=== PATIENT | male | born 1950 | race Caucasian/White ===

== ENCOUNTER → 2023-12-27 14:10 | Outpatient (REF) | payer MEDICARE, OTHER, SELFPAY | LOC: HWRAD 14:10 | PROVIDERS: ATTENDING PHYSICIAN Internal Medicine | DX: S99.911A Unspecified injury of right ankle, initial encounter (principal) | CPT/HCPCS: 73610 ==

== ENCOUNTER 2024-07-25 21:27 | Emergency (ER) | payer MEDICARE, OTHER, SELFPAY ==
[2024-07-25 21:37] VITALS: BP 143/65
[2024-07-25 21:43] VITALS: BP 143/65
[2024-07-25 22:00] VITALS: BP 140/73
--- NOTE | 2024-07-25 22:19 | ED.GENMED ---
History of Present Illness
General
Chief Complaint: Cardiac Symptoms
Source: patient and family
Time Seen by Provider: 07/25/24 21:49
History of Present Illness
History of Present Illness:
This patient is a 74-year-old male presents emergency with complaints of feeling off balance while walking that he noticed as soon as he got out of the bed today. He describes it as 'my footing is not correct' also described as feeling like he
'goes sideways' when he got out of bed and tried to walk. He describes feeling like he is falling on an angle. It took him 4 separate attempts to get out of bed to walk to the bathroom this morning. Throughout the day, he has had 3 episodes where
he needed to 'catch himself' to protect himself from falling because he would feel like he was losing his footing. He denies weakness or numbness in his extremities and he specifically states 'I am not dizzy in my head'. He denies a sense of
spinning, dizziness, headache. He describes suffering from 'crystals in my head' and going to the balance center in the past and denying similarities to today's symptoms. He denies numbness, tingling, focal weakness, nausea, vomiting, fever,
chills, chest pain, shortness of breath. He also notes that he has very mild almost fully resolved discomfort in the left neck and arm that started when he adjusted his chair today. He strongly believes it is related to his chair and his position,
as well as his longstanding rotator cuff issue. He denies exacerbating relieving factors this pain, radiation, back pain, diaphoresis, or other complaints.
Past History
Past History
ED Past Medical History: Hypercholesterolemia, NIDDM ('Borderline'.) and Other (IBS, A-fib, bipolar)
ED Past Surgical History: Cholecystectomy and Other (eye)
Social History
Tobacco: Former smoker
Alcohol: Occasional
Drug: None
Personal:
Living: with family
Employment: Retired
Phy Exam
Physical Exam
Physical Exam:
GENERAL: Alert , in no apparent distress
EYE: Left pupil round but larger than right which is chronic as per patient, no nystagmus noted, EOMI, no photophobia
NECK: Supple, no significant adenopathy, no bruit.
ENT: o/p clr, mmm.
CARDIAC: Regular rate and rhythm .
LUNGS: Clear breath sounds bilaterally, no acute respiratory distress, no wheezes/rales/rhonchi
ABDOMEN: Soft, without focal tenderness, no r/g, no cvat
NEUROLOGICAL: Alert and oriented, no focal neuro deficits, motor 5 out of 5, sensory intact to light touch, cranial nerves II through XII intact, [id number] normal
SKIN: Warm and dry, skin intact.
MUSCULOSKELETAL: No edema, well perfused.
PSYCH: Normal and appropriate interaction.
Course
Orders/Labs/Results
Orders:
Orders
07/25/24 21:29
ECG [Electrocardiogram (*1)] Urgent
Reason for Study: Chest Pain
EKG- Treatment ONCE
07/25/24 22:19
CT Head W/o Iv Contrast Urgent
Comment:
Reason For Exam: on warfarin, feels off balance
Cardiac Monitoring- Treatment ONCE
07/25/24 22:23
Complete Blood Count/No Diff Urgent
Comprehensive Metabolic Panel Urgent
[place] Urgent
Prothrombin Time Urgent
Troponin I Urgent
07/26/24 00:15
CT Head & Neck Angio W/wo IV Urgent
Comment:
Reason For Exam: neck pain, imbalance
Abnormal Lab Results
07/25/24
22:23
RBC 4.36 L 10^6/uL
(4.70-6.10)
Hct 38.8 L %
(39.0-52.0)
PT 21.0 H Sec
(11.4-14.6)
Calcium 10.3 H mg/dl
(8.4-10.2)
[place] 0.4 L mmol/L
(0.6-1.2)
07/25/24 22:23
07/25/24 22:23
Vital Signs
Initial and Last Documented VS:
Initial Vital Signs
Temp Pulse Resp BP Pulse Ox
97.7 F 54 16 143/65 98
07/25/24 21:37 07/25/24 21:37 07/25/24 21:37 07/25/24 21:37 07/25/24 21:37
Last Documented Vital Signs
Temp Pulse Resp BP Pulse Ox
97.7 F 59 18 125/69 97
07/25/24 21:37 07/26/24 02:25 07/26/24 02:25 07/26/24 02:25 07/26/24 02:25
*Critical Care Note
Total Time (30-74mins, 75-104mins- exclusive of procedures): Not Applicable
Update Note
Update Note:
Patient presents to the Emergency Department with ____feeling like losing footing while walking
Number and Complexity of Problems Addressed at the Encounter
� Chronic conditions affecting care:
� Acute Exacerbation and/or Progression of Chronic Illness:
� Differential Diagnosis includes: But not limited to peripheral vertigo, central vertigo, ACS, intracranial bleed, CVA, etc.
Amount and/or Complexity of Data to be Reviewed and Analyzed
� I performed an independent evaluation of and my interpretation is:
EKG: Read by me, sinus bradycardia, normal axis, no acute ischemia
CT: Noncontrast head CT read by radiology NAD CTA read by vision bilateral vertebral arteries are widely patent left vertebral artery is dominant bilateral common carotid and internal carotid arteries are widely patent
approximately 4.6 x 2.3 x 4 cm nodule in the right lobe of the thyroid gland [place] is patent.
Xrays:
Laboratory Studies: Generally unremarkable patient states his lithium level is always considered subtherapeutic but still helpful to him. He is aware his INR is 1.8 and he will need to follow-up with his doctor tomorrow
regarding Coumadin dosing.
Other:
� Review of other/old records reveals: Patient admitted in 2019 with complaints of chest pain, workup unremarkable, echo showed EF of 60 to 65% with mild LVH, nuclear stress normal
� Clinical information was obtained by an independent historian: Daughter and who are at bedside
� Prescriptions/Medications Considered but not given:
� Further testing considered but not performed:
Risk of Complications and/or Morbidity or Mortality of Patient Management
� Social determinants of health affecting care:
� Discussion with other providers (PCP, Hospitalists, Consultants, etc):
� Escalation of care including admission/observation vs risk of discharge considered: Interestingly although patient gave a history that he did not feel like it was related to crystals, when I sat him up to listen to his lungs he
stated that he now is developing associated vertigo. Since that time, patient has had several episodes of short-lived positional vertigo. He does not have resting nystagmus or constant vertigo. He ambulated here in the emergency department, had a
brief episode of vertigo with change in position which self resolved. No focal neurological findings. History and physical do not suggest central etiology. Patient will be discharged with close follow-up.
ED Attending Note
-
Portions of this chart may have been created with voice recognition software.� Occasional wrong word or��sound alike� substitutions may have occurred due to the inherent limitations of voice recognition software.
Discharge Plan
Departure
Patient Disposition: Home (Routine Discharge)
Date of Disposition: 07/26/24
Time of Disposition: 02:08
Patient with high blood pressure during this ER visit?: Yes
Condition: Good
Discharge Problem:
Dizziness
Instructions: Vertigo (a type of dizziness), BLOOD PRESSURE
Prescriptions:
New
meclizine [Antivert] 25 mg tablet,chewable
25 mg PO Q8HPRN PRN (Reason: nausea or vertigo) Qty: 7 0RF
No Action
amitriptyline-chlordiazepoxide 1 EACH tablet
1 tab PO QPM
omega 4-iwf-jod-fish oil [Fish Oil] 1 EACH capsule
2 ea PO BID
latanoprost 1 DROP drops
1 drp BOTH EYES HS
primidone 50 MG tablet
50 mg PO DAILY
fexofenadine [Karie] 180 MG tablet
180 mg PO DAILYPRN PRN (Reason: allergy)
aspirin 81 MG tablet,delayed release (DR/EC)
81 mg PO DAILY
Patient Comments:
Pt took 4 of these this am
lansoprazole [Prevacid] 30 MG capsule,delayed release(DR/EC)
30 mg PO BID
Patient Comments:
Pt is taking this medication once a day at night.
vitamin B complex 1 TAB tablet
1 tab PO DAILY
primidone [Mysoline] 50 MG tablet
100 mg PO HS
atorvastatin 10 MG tablet
10 mg PO QPM
lithium carbonate 600 MG capsule
600 mg PO HS
albuterol sulfate 18 GM HFA aerosol inhaler
1 - 2 puff IH Q4HPRN PRN (Reason: SOB)
ipratropium bromide 1 SPRAY spray,non-aerosol
2 spray intranasal DAILYPRN PRN (Reason: nasal congestion,allergies)
brimonidine [Alphagan P] 1 DROP drops
1 drp LEFT EYE BID
[place] Capsules
1 cap PO BID
Cranberry
1 cap PO DAILY
Magnesium
450 mg PO HS
warfarin [Jantoven] 5 MG tablet
5 mg PO DAILY Qty: 30 0RF
Referrals:
Italo Betts MD [Family Provider] - Follow up in 2-3 days
Activity Restrictions/Additional Instructions:
PLEASE FOLLOW-UP WITH YOUR DOCTOR DIRECTED. IF YOU DEVELOP PERSISTENT DIZZINESS, ANY NUMBNESS, WEAKNESS, CHANGE IN VISION, CHANGE IN SPEECH, SEVERE HEADACHE OR NECK PAIN, OR OTHER WORRISOME SIGNS, PLEASE RETURN TO THE ER IMMEDIATELY. PLEASE
CALL YOUR DOCTOR TOMORROW REGARDING YOUR INR OF 1.8 YOU WILL NEED MODIFICATIONS TO YOUR WARFARIN DOSING
Interventions
Interventions:
*Risk Screen - Suicide Last Done: 07/26/24 00:58
*General Assessment Last Done: 07/25/24 21:37
*Neglect/Abuse Screening Last Done: 07/25/24 23:43
ED- Fall Risk Assessment Last Done: 07/26/24 00:58
*ED COVID-19 Vaccine History Last Done: 07/25/24 21:37
*Nursing Disposition Last Done: 07/26/24 02:25
ED- Pulmonary Assessment Last Done: 07/25/24 22:07
ED- Cardiac Assessment Last Done: 07/25/24 22:07
Discharge Date and Time
Discharge Date/Time: 07/26/24 02:26
Print Language: [place]
[2024-07-25 22:40] LABS: Hematocrit 38.8 % (39.0-52.0); Hemoglobin 13.1 g/dL (13.0-18.0); Mean Corp Hgb Conc. 33.8 g/dL (33.0-37.0); Mean Platelet Volume 9.8 fL (7.4-10.4); Platelet Count 221 10^3/uL (130-400); Red Blood Cell Count 4.36 10^6/uL (4.70-6.10)
[2024-07-25 22:50] LABS: INR 1.83
[2024-07-25 22:59] LABS: ALT (SGPT) 35 U/L (0-50); AST (SGOT) 29 U/L (17-59); Alkaline Phosphatase 68 U/L (38-126); Blood Urea Nitrogen 15 mg/dl (9-20); Calcium 10.3 mg/dl (8.4-10.2); Carbon Dioxide 28 mmol/L (22-30); Chloride 106 mmol/L (98-107); Glucose 80 mg/dl (70-99); Lithium 0.4 mmol/L (0.6-1.2); Potassium 4.9 mmol/L (3.5-5.1); Sodium 139 mmol/L (135-145); Total Bilirubin 0.5 mg/dl (0.2-1.3); Total Protein 6.3 g/dl (6.3-8.2); eGFR > 60.00
[2024-07-25 23:05] LABS: Troponin I < 0.012 ng/ml
[2024-07-25 23:44] VITALS: BP 119/64
[2024-07-26] VITALS: BP 149/73
[2024-07-26 02:15] VITALS: BP 125/69
[2024-07-26 02:25] VITALS: BP 125/69
== END 2024-07-26 02:26 | disposition home or self-care (01) ==
LOC: EMR 21:27
PROVIDERS: EMERGENCY PHYSICIAN Emergency Medicine; FAMILY PHYSICIAN Internal Medicine
DX: R42 Dizziness and giddiness (principal); M54.2 Cervicalgia; M79.602 Pain in left arm; R26.81 Unsteadiness on feet; R03.0 Elevated blood-pressure reading, without diagnosis of hypertension; E78.00 Pure hypercholesterolemia, unspecified; K58.9 Irritable bowel syndrome, unspecified; I48.91 Unspecified atrial fibrillation; F31.9 Bipolar disorder, unspecified; R73.03 Prediabetes; Z79.82 Long term (current) use of aspirin; Z79.01 Long term (current) use of anticoagulants; Z90.49 Acquired absence of other specified parts of digestive tract; Z87.891 Personal history of nicotine dependence; Z88.8 Allergy status to other drugs, medicaments and biological substances; Z88.5 Allergy status to narcotic agent
CPT/HCPCS: 99285; 70450; 70496; 70498; 80053; 80178; 84484; 85027; 85610; 93005; Q9967

== ENCOUNTER 2024-08-14 16:39 | Observation (INO) | payer MEDICARE, OTHER, SELFPAY ==
[2024-08-14] VITALS (13 sets, daily range): BP systolic 109–164; BP diastolic 56–85; PULSE 49–66; BMI 30.5; BMI 29.4
--- NOTE | 2024-08-14 14:17 | ED.GENMED ---
History of Present Illness
General
Chief Complaint: Dizziness
Time Seen by Provider: 08/14/24 13:37
History of Present Illness
History of Present Illness:
74-year-old male with history of bipolar disorder, A-fib on Coumadin presenting to the emergency department for feeling off balance. Patient reports issues with vertigo in the past and had an acute issue on July 25, at which time he was seen in
the hospital. Patient had CT brain and CT angio of his head and neck, without acute pathology. 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 Patient has been getting vestibular therapy a few times a week, has been
doing well with therapy. Notes that particularly yesterday he had a good day with therapy. Today he went to vestibular therapy, and they were unable to do most of the therapy because he was very off balance. The therapist reported that she did
not attach any crystals to suspect vertiginous component. Daughter tried to walk him to his car, and he had several episodes where he lost his footing and seemed to be out of it, was not responding verbally. This incident occurred about an hour
prior to arrival. He denied any dizziness with this off-balance sensation. Patient is currently asymptomatic. Denies weakness or numbness to extremities, denies visual symptoms, denies chest pain, difficulty breathing, fever or recent illness.
Denies additional acute medical complaints
Past History
Past History
ED Past Medical History: Hypercholesterolemia, NIDDM ('Borderline'.) and Other (IBS, A-fib, bipolar)
ED Past Surgical History: Cholecystectomy and Other (eye)
Social History
Tobacco: Former smoker
Alcohol: Occasional
Drug: None
Personal:
Living: with family
Employment: Retired
Phy Exam
Physical Exam
Physical Exam:
General: Well-appearing, no clinical signs of dehydration, nontoxic and in no acute distress
HEENT: protecting airway
Neck: appears supple
CV: Normal heart rate, regular rhythm, no evidence of cyanosis
Resp: No accessory muscle use, no increased work of breathing, lungs clear to auscultation bilaterally
Abd: Soft and non-distended, no tenderness to palpation, normal bowel sounds
Extremities: No deformities, no swelling, no erythema, pulses and sensation intact
Neuro: alert, intact strength and motor sensation to bilateral upper and lower extremities. Patient ambulated, slightly unsteady
: deferred
Rectal: deferred
Psych: Normal affect
Skin: Intact
Scores
NIH Stroke Score
Level of Consciousness: 0 - Alert
LOC Questions: 0-Answers both correctly
LOC Commands: 0-Performs both correctly
Best Horizontal Gaze: 0-Normal
Visual Tom: 0=Normal, no visual loss
Facial Palsy: 0=Normal, symmetrical
Motor - Right Arm: 0=No drift 10 seconds
Motor - Left Arm: 0=No drift 10 seconds
Motor - Right Le-No drift 5 seconds
Motor - Left Le-No drift 5 seconds
Limb Ataxia: 0-Absent
Sensation: 0-Normal
Best Language: 0-No aphasia
Dysarthria: 0-Normal
Extinction and Inattention: 0-No abnormality
Total Score:: 0
Course
Orders/Labs/Results
Orders:
Orders
08/14/24 14:03
Electrocardiogram (*1) Stat
Reason for Study: Other
Other Reason for Exam: chest pain
EKG- Treatment ONCE
08/14/24 14:07
Complete Blood Count/With Diff Urgent
Erythrocyte Sed Rate Urgent
Comment: ADD ON
PTT Urgent
Prothrombin Time Urgent
Troponin I Urgent
08/14/24 14:08
CT Head W/o Iv Contrast Urgent
Comment:
Reason For Exam: off-balance
08/14/24 14:36
Comprehensive Metabolic Panel Urgent
Ferritin Urgent
Comment: ADD ON
Folate Urgent
Comment: ADD ON
[place] Urgent
Comment: ADD ON
TSH Reflex To Free T4 Urgent
Comment: ADD ON
Vitamin B12 Urgent
Comment: ADD ON
08/14/24 14:40
Add On- LAB Routine
Comments:: Please add to today's labs or draw as routine
Tests Added?: TSH reflex, Ferritin, Folate, Vit. B12, ESR, lithium level
08/14/24 14:43
Orthostatic Vital Signs As Directed
Orthostatic VS Frequency: BID
Comment: please wait 3 minutes after each position change before checking bp
08/14/24 15:24
MR Brain Without Contrast Routine
Comment:
Reason For Exam: dizziness; stroke
Recent pill cam endoscopy?: No
Abnormal Lab Results
08/14/24
14:07
RBC 4.45 L 10^6/uL
(4.70-6.10)
Absolute Monos (auto) 1.0 H 10^3/uL
(0.1-0.6)
Monocytes % 12.4 H %
(1.7-9.3)
Eosinophils % 8.7 H %
(0-6)
PT 19.3 H Sec
(11.4-14.6)
APTT 39.2 H Sec
(23.4-35.0)
08/14/24 14:07
08/14/24 14:36
Vital Signs
Initial and Last Documented VS:
Initial Vital Signs
Temp Pulse BP Pulse Ox
98.5 F 60 146/85 99
08/14/24 13:09 08/14/24 13:09 08/14/24 13:09 08/14/24 13:09
Last Documented Vital Signs
Temp Pulse Resp BP Pulse Ox
98.5 F 54 12 124/64 100
08/14/24 13:09 08/14/24 15:00 08/14/24 15:00 08/14/24 15:00 08/14/24 15:00
MDM/Problems Addressed
MDM/Problems Addressed:
74-year-old male with history of bipolar and A-fib on Eliquis presenting for being off balance. Vital signs on arrival are normal.
On exam, patient is resting comfortably, no acute distress or discomfort. Patient however was ambulated, did seem off balance. Denies associated dizziness. Patient has had vertigo in the past, has been suffering with vertigo in the past few with
vestibular therapy, however notes symptoms feel different than those events. At this time symptoms are less consistent with vertiginous etiology. Concern for central neurologic process. NIH at this time is 0, without indication for tPA in the
setting of potential central neurologic process. Will consult neurology and repeat CT imaging.
15:30 -CT without acute intracranial abnormality. Labs unremarkable. EKG does show bradycardia, however no acute ischemic abnormality or heart block. In discussion with neurology, recommending orthostatics and admission for MRI. Patient and
family agreeable to plan.
*EKG
Interpreted by ED Provider?: Yes
EKG Intrepretation Date: 08/14/24
EKG Intrepretation Time: 14:25
Interpretation: normal
Comparison EKG: no changes
Heart Rate: 51
Rate: bradycardiac
Rhythm: sinus
[place]: normal axis
Interval: normal interval
QRS Pattern: normal QRS
Ischemia: no ischemia
*Critical Care Note
Total Time (30-74mins, 75-104mins- exclusive of procedures): Not Applicable
ED Attending Note
-
Portions of this chart may have been created with voice recognition software.� Occasional wrong word or��sound alike� substitutions may have occurred due to the inherent limitations of voice recognition software.
Discharge Plan
Departure
Prescriptions:
No Action
amitriptyline-chlordiazepoxide 1 EACH tablet
1 tab PO QPM
omega 9-igs-tkz-fish oil [Fish Oil] 1 EACH capsule
2 ea PO BID
latanoprost 1 DROP drops
1 drp BOTH EYES HS
primidone 50 MG tablet
50 mg PO DAILY
fexofenadine [Karie] 180 MG tablet
180 mg PO DAILYPRN PRN (Reason: allergy)
aspirin 81 MG tablet,delayed release (DR/EC)
81 mg PO DAILY
Patient Comments:
Pt took 4 of these this am
lansoprazole [Prevacid] 30 MG capsule,delayed release(DR/EC)
30 mg PO BID
Patient Comments:
Pt is taking this medication once a day at night.
vitamin B complex 1 TAB tablet
1 tab PO DAILY
primidone [Mysoline] 50 MG tablet
100 mg PO HS
atorvastatin 10 MG tablet
10 mg PO QPM
lithium carbonate 600 MG capsule
600 mg PO HS
albuterol sulfate 18 GM HFA aerosol inhaler
1 - 2 puff IH Q4HPRN PRN (Reason: SOB)
ipratropium bromide 1 SPRAY spray,non-aerosol
2 spray intranasal DAILYPRN PRN (Reason: nasal congestion,allergies)
brimonidine [Alphagan P] 1 DROP drops
1 drp LEFT EYE BID
[place] Capsules
1 cap PO BID
Cranberry
1 cap PO DAILY
Magnesium
450 mg PO HS
warfarin [Jantoven] 5 MG tablet
5 mg PO DAILY Qty: 30 0RF
meclizine [Antivert] 25 mg tablet,chewable
25 mg PO Q8HPRN PRN (Reason: nausea or vertigo) Qty: 7 0RF
Referrals:
Italo Betts MD [Family Provider] -
Interventions
Interventions:
*Risk Screen - Suicide Last Done: 08/14/24 13:11
*General Assessment Last Done: 08/14/24 13:11
*Neglect/Abuse Screening Last Done: 08/14/24 13:13
ED- Fall Risk Assessment Last Done: 08/14/24 13:40
*ED COVID-19 Vaccine History Last Done: 08/14/24 13:11
ED- Neurological Assessment Last Done: 08/14/24 13:40
ED- Cardiac Assessment Last Done: 08/14/24 13:40
ED Swallowing Screen Last Done: 08/14/24 14:02
Discharge Date and Time
Print Language: YI
[2024-08-14 14:19] LABS: % Eosinophils 8.7 % (0-6); % Immature Granulocytes 0.3 % (0-0.5); % Lymphocytes 22.4 % (20.5-51.1); % Monocytes 12.4 % (1.7-9.3); % Neutrophils 55.2 % (42.2-75.2); Absolute Basophils 0.1 10^3/uL (0-0.2); Absolute Eosinophils 0.7 10^3/uL (0-0.7); Absolute Lymphocytes 1.8 10^3/uL (1.2-3.4); Absolute Neutrophils 4.4 10^3/uL (1.4-6.5); Hematocrit 41.4 % (39.0-52.0); Hemoglobin 13.7 g/dL (13.0-18.0); Mean Corp Hgb Conc. 33.1 g/dL (33.0-37.0); Mean Corpuscular Hgb 30.8 pg (27.0-31.0); Mean Platelet Volume 9.9 fL (7.4-10.4); Nucleated Red Blood Cells % 0 % (-); Platelet Count 216 10^3/uL (130-400); Red Blood Cell Count 4.45 10^6/uL (4.70-6.10); Red Cell Dist. Width 14.2 % (11.5-14.5); White Blood Cell Count 7.9 10^3/uL (4.8-10.8)
[2024-08-14 14:29] LABS: INR 1.57; PT 19.3 Sec (11.4-14.6)
[2024-08-14 14:30] LABS: APTT 39.2 Sec (23.4-35.0)
[2024-08-14 14:45] LABS: Troponin I < 0.012 ng/ml
--- NOTE | 2024-08-14 14:45 | CON.NEURO4 ---
Addendum entered and electronically signed by Tim Lombardo MD 08/14/24 16:24:
Studies reviewed.
I have personally examined the patient. I reviewed and agree with the POLYTECHNIC REGISTRAR's Note.
My addenda:
Awake, alert, interactive. No acute distress.
Speech intact.
Follows 2-step requests w/o difficulty. No tremor.
Extra-ocular movements grossly intact.
Facial movements full and symmetric. Hearing intact to normal conversational volume.
Normal UE movements bilaterally.
Neck: full ROM.
Chest: no dyspnea
Heart: no JVD
Ext: (-) Clubbing, (-) Cyanosis, (-) Edema
IMPRESSIONS/RECOMMENDATIONS:
Abrupt onset of worsening gait with scissor movements in a patient with known essential tremor secondary in part to the patient's use of lithium, and with known neuropathy
Differential diagnosis includes orthostatic hypotension, acute ischemic stroke, worsening vestibular function
Check MRI of brain
Check orthostatic blood pressures
Check levels of lithium and primidone
Follow bradycardia
D/W patient / family / nursing
All questions answered.
Will continue to follow patient.
Original Note:
Documented by User: Mary Duke NP 08/14/24 15:59
Consultation - Neurology 4
-
CONSULTING PHYSICIAN: Tim Lombardo MD
REFERRING PHYSICIAN: ER/Dr. Granados
DICTATED BY: TOÑA Montenegro
DATE/TIME OF REQUEST: 08/14/24
DATE/TIME OF CONSULTATION: 08/14/24
Reason for Consultation: Dizziness, gait abnormality
History of Present Illness:
This is a 74-year-old right-handed male who has presented to the hospital with report of gait abnormality. Patient is followed by Neurology Dr. Wiliam Dowling at [facility] for tremor, polyneuropathy, gait imbalance, and dysphagia. He was
recently evaluated in ER on 07/25/24 for gait dysfunction as well, falls and bumping into berumen. CTA head/neck was obtained and was negative for any acute findings. His symptoms were suspected to be due to his chronic BPPV and he was referred to
outpatient vestibular therapy. He and his family report that his vestibular therapist initially noted BPPV and his symptoms improved after a few sessions. Today around 1100 at physical therapy, patient was noted to be much more off-balance than
usual and they could not detect any peripheral vertigo symptoms. His daughter picked him up from therapy and upon walking to the car notes that he seemed to be 'out of it,' minimally verbally responsive, and his gait was a 'leg over leg' abnormal
walk. He has been noting posterior neck pain since 07/25/24 and feeling that something is 'off' in the back of his head. 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 He also notes being diagnosed with severe
peripheral neuropathy by EMG two years ago and he wears orthotics. It is not abnormal for him to be 'clumsy' when he first stands up. His heart rate is notably in the upper 40's, which they report 40's-50's is normal for him. He is taking Coumadin
for paroxysmal Afib, INR was subtherapeutic in July and again today. 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 He is taking primidone for this and has been on lithium/primidone for years.
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
Surgical History: Cholecystectomy, b/l cataract removal, cardiac cath, left eye 5 surgeries for retinal detachment repair.
Family History: Reviewed and noncontributory.
Social History: Former smoker. Occasional alcohol. Denies illicit drug use. 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
Allergies: Codeine, thiothixene.
Home Medications: See below.
Review of Symptoms:
Patient denies any fever, headache, chest pain, shortness of breath, GI or symptoms.
�Per the HPI.�All systems are reviewed negative except above.
Physical Exam:
The patient is afebrile, abdomen is nondistended, breathing is unlabored, skin is warm and dry, no edema.
NIH Stroke Scale:
I performed the NIH stroke scale on the patient on 08/14/24 at 1500. The patient scored 2 points on the NIH stroke scale assessment, which were assigned as follows: See below.
Neurologic Examination:
The patient is awake, alert and oriented x 3. He is able to follow commands and answer questions appropriately. There is no aphasia or dysarthria. On cranial nerve assessment, right pupil is 2 mm bilateral, round and reactive to light and
accommodation, left pupil is 2.5mm and sluggish. Visual tom are reduced peripherally in the left eye, full in the right eye. Extraocular movements are intact. No nystagmus. Facial sensations are intact and bilaterally symmetrical, there is no
facial asymmetry. Hearing is intact bilaterally to finger rub. Tongue palate and uvula are midline. Sternocleidomastoid strengths are full bilaterally. Motor strengths are 5/5 bilateral upper and lower extremities on medical research [place] scale.
There is no drift. There is a low amplitude semirhythmic tremor in distal bilateral upper extremities on exertion. Deep tendon reflexes are 2+ bilateral upper and lower extremities and Babinski is absent bilaterally. There was no extinction noted on
double simultaneous stimulation. Coordination is intact by finger to nose bilaterally. Negative head impulse test. Test of skew positive once.
Lab Results: See below.
Neuro Imaging:
1. CT head 08/14/24: No acute intracranial abnormality noted. No acute intracranial hemorrhage. Minor chronic ischemic change. Mild chronic sinusitis.
2. CTA head/neck 08/14/24: No significant internal carotid artery stenosis or findings to suggest internal carotid artery dissection bilaterally. Mildly dominant left vertebral artery. No findings to suggest vertebral artery dissection bilaterally.
Proximal intracranial arteries widely patent bilaterally. Approximate 4.6 cm heterogeneous right lobe thyroid nodule, suggest dedicated Thyroid Ultrasound for more complete evaluation.
Differentials for the patient's presentation include:
1. BPPV.
2. Concern for orthostasis.
3. Bradycardia.
4. Subtherapeutic INR, hx paroxysmal Afib concerning for possible stroke.
5. Peripheral neuropathy.
6. [place]/primidone toxicity less likely but possible.
IV Tenecteplase/IAT candidacy: Not a candidate due to outside of time window, Coumadin usage.
Recommendations:
-MRI brain noncontrast pending.
-[place] level is normal. Primidone level pending.
-Check orthostatic vital signs BID.
-Coumadin management for INR goal 2-3 per primary team.
-Checking blood work for metabolic abnormalities.
-PT/OT evaluations.
-Provide patient with a stroke education packet.
-NIHSS and neurological checks until brain MRI rules out stroke.
-LDL goal will be <70 if MRI brain demonstrates a stroke, lipid panel pending.
-Goal normoglycemia, hbA1c is pending.
-Will follow pending results.
Discussed patient care with: Dr. Lombardo, the patient, patient's family
Vital Signs and Labs
-
Vital Signs and Labs:
Vital Signs
Temp Pulse Resp BP Pulse Ox
98.5 F 54 12 124/64 100
08/14/24 13:09 08/14/24 15:00 08/14/24 15:00 08/14/24 15:00 08/14/24 15:00
Lab Results
08/14/24 14:07
08/14/24 14:36
PT 19.3 Sec (11.4-14.6) H 08/14/24 14:07
INR 1.57 08/14/24 14:07
APTT 39.2 Sec (23.4-35.0) H 08/14/24 14:07
Sodium 138 mmol/L (135-145) 08/14/24 14:36
Potassium 4.9 mmol/L (3.5-5.1) 08/14/24 14:36
BUN 14 mg/dl (9-20) 08/14/24 14:36
Glucose 93 mg/dl (70-99) 08/14/24 14:36
Calcium 9.9 mg/dl (8.4-10.2) 08/14/24 14:36
Medications
-
Home Medications
�Medication �Instructions �Recorded
amitriptyline-chlordiazepoxide 25 1 tab PO QPM 02/05/19
mg-10 mg tablet
aspirin 81 mg tablet,delayed 81 mg PO DAILY 02/05/19
release
fexofenadine 180 mg tablet 180 mg PO DAILYPRN PRN allergy 02/05/19
(Karie)
lansoprazole 30 mg capsule,delayed 30 mg PO BID 02/05/19
release (Prevacid)
latanoprost 0.005 % eye drops 1 drp BOTH EYES HS 02/05/19
omega 5-hha-smt-fish oil 300 2 ea PO BID 02/05/19
mg-1,000 mg capsule (Fish Oil)
primidone 50 mg tablet 50 mg PO DAILY 02/05/19
vitamin B complex 1 tab PO DAILY 02/05/19
[place] Capsules 1 cap PO BID 02/17/22
Cranberry 1 cap PO DAILY 02/17/22
Magnesium 450 mg PO HS 02/17/22
albuterol sulfate 90 mcg/actuation 1 - 2 puff IH Q4HPRN PRN SOB 02/17/22
aerosol inhaler
atorvastatin 10 mg tablet 10 mg PO QPM 02/17/22
brimonidine 0.15 % eye drops 1 drp LEFT EYE BID 02/17/22
(Alphagan P)
ipratropium bromide 21 mcg (0.03 2 spray intranasal DAILYPRN PRN 02/17/22
%) nasal spray nasal congestion,allergies
lithium carbonate 600 mg capsule 600 mg PO HS 02/17/22
primidone 50 mg tablet (Mysoline) 100 mg PO HS 02/17/22
warfarin 5 mg tablet (Jantoven) 5 mg PO DAILY #30 tabs 02/17/22
meclizine 25 mg chewable tablet 25 mg PO Q8HPRN PRN nausea or 07/26/24
(Antivert) vertigo #7 tabs
NIH Stroke Score
Subsequent NIH Scale
Date of Subsequent NIH Scale: 08/14/24
Time of Subsequent NIH Scale: 15:00
NIH Stroke Score
Level of Consciousness: 0 - Alert
LOC Questions: 0-Answers both correctly
LOC Commands: 0-Performs both correctly
Best Horizontal Gaze: 0-Normal
Visual Tom: 2=Full hemianopia (chronic low vision left eye, retinal detachment)
Facial Palsy: 0=Normal, symmetrical
Motor - Right Arm: 0=No drift 10 seconds
Motor - Left Arm: 0=No drift 10 seconds
Motor - Right Le-No drift 5 seconds
Motor - Left Le-No drift 5 seconds
Limb Ataxia: 0-Absent
Sensation: 0-Normal
Best Language: 0-No aphasia
Dysarthria: 0-Normal
Extinction and Inattention: 0-No abnormality
Total Score:: 2
Modified [place] (mRS) Score
Modified [place] Scale (mRS): Slight disability. Able to look after own affairs.
Score: 2

Documented by User: Tim Lombardo MD 08/14/24 16:14
NIH Stroke Score
NIH Stroke Score
Total Score:: 2
Modified [place] (mRS) Score
Score: 2
[2024-08-14 14:55] LABS: Erythrocyte Sed Rate 8 mm/hour (0-20)
[2024-08-14 15:08] LABS: ALT (SGPT) 38 U/L (0-50); AST (SGOT) 33 U/L (17-59); Alkaline Phosphatase 61 U/L (38-126); Blood Urea Nitrogen 14 mg/dl (9-20); Calcium 9.9 mg/dl (8.4-10.2); Carbon Dioxide 30 mmol/L (22-30); Chloride 105 mmol/L (98-107); Estimated Creatinine Clearance 99 ml/min; Glucose 93 mg/dl (70-99); Lithium 0.7 mmol/L (0.6-1.2); Potassium 4.9 mmol/L (3.5-5.1); Sodium 138 mmol/L (135-145); Total Bilirubin 0.4 mg/dl (0.2-1.3); Total Protein 6.3 g/dl (6.3-8.2); eGFR > 60.00
--- NOTE | 2024-08-14 16:07 | HPS.HSE ---
Family Physician
-
Family Physician: Italo Roberts
Chief Complaint
-
gait dysfunction
History of Present Illness
74-year-old male with history of bipolar disorder, A-fib on Coumadin presenting to the emergency department for feeling off balance. Today he went to vestibular therapy, and they were unable to do most of the therapy because he was very off balance.
Daughter tried to walk him to his car, and he had several episodes where he lost his footing patient denied any headache, dizziness, syncopal episodes. Patient denied any slurred speech. Patient denied any fever, chills, chest pain, short of
breath. Patient denied any abdominal pain, nausea, vomiting, diarrhea. Patient denied dysuria hematuria.
Patient reports issues with vertigo in the past and had an acute issue on July 25, at which time he was seen in the hospital. Patient had CT brain and CT angio of his head and neck, without acute pathology. Patient was thought to have BPPV, was
discharged with vestibular therapy.
Head CT without acute findings admitting for further management.
Medical History
Past Medical History
Past Medical History: Reports Other
Additional Past Medical History:
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
Past Surgical History: Reports Other
Additional Past Surgical History:
cholecystectomy, b/l cataract removal, cardiac cath, left eye 5 surgeries for retinal detachment repair.
Social History
Tobacco: Former Smoker
Alcohol: Occasional
Drug: None
Living: With Family
Family History
Family History: Not pertinent
Allergies / Home Medications
Allergies reflects when Allergies were last updated in [facility].
Home Medications with original date entered in [facility]
Allergy/Medication List:
Allergies
Allergy/AdvReac Type Severity Reaction Status Date / Time
codeine Allergy Unknown Verified 07/02/23 00:16
thiothixene [From Navane] Allergy Unknown Verified 07/02/23 00:16
Home Medications
aspirin 81 mg tablet,delayed release 81 mg PO HS 02/05/19
omega 6-vlb-mje-fish oil 300 mg-1,000 mg capsule (Fish Oil) 1 ea PO TID 02/05/19
primidone 50 mg tablet 100 mg PO BID 02/05/19
vitamin B complex 1 tab PO DAILY 02/05/19
albuterol sulfate 90 mcg/actuation aerosol inhaler 1 - 2 puff IH R Q4HPRN PRN SOB 02/17/22
magnesium oxide 400 mg PO QPM 02/17/22
amitriptyline 25 mg tablet 25 mg PO HS 08/14/24
atorvastatin 20 mg tablet 20 mg PO DAILY 08/14/24
brimonidine 0.2 % eye drops 1 drp LEFT EYE TID 08/14/24
chlordiazepoxide HCl 10 mg capsule 10 mg PO HS 08/14/24
cinnamon bark 500 mg capsule (Cinnamon) 500 mg PO BID 08/14/24
cranberry fruit 450 mg tablet (cranberry) 450 mg PO DAILY 08/14/24
desonide 0.05 % topical cream 1 applic topical DAILYPRN PRN ears 08/14/24
diltiazem HCl 120 mg capsule,24 hr,extended release 120 mg PO DAILY 08/14/24
erythromycin 5 mg/gram (0.5 %) eye ointment 1 applic BOTH EYES DAILYPRN PRN inflammation 08/14/24
fexofenadine 180 mg tablet 180 mg PO HS 08/14/24
fluticasone propionate 50 mcg/actuation nasal spray,suspension 1 spray intranasal DAILYPRN PRN congestion 08/14/24
latanoprost 0.005 % eye drops 1 drp BOTH EYES HS 08/14/24
lithium carbonate 300 mg capsule 300 mg PO BID 08/14/24
pantoprazole 40 mg tablet,delayed release 40 mg PO DAILYPRN PRN gerd 08/14/24
prednisolone acetate 1 % eye drops,suspension 1 drp LEFT EYE HS 08/14/24
tirzepatide 7.5 mg/0.5 mL subcutaneous pen injector (Mounjaro) 7.5 mg SC TH 08/14/24
warfarin 5 mg tablet 7.5 mg PO SUSA 08/14/24
warfarin 5 mg tablet (Jantoven) 10 mg PO MOTUWETHFR 08/14/24
Review of Systems
-
Constitutional: Reports No Symptoms
EENT: Reports No Symptoms
Respiratory: Reports No Symptoms
Cardiac: Reports No Symptoms
Abdomen/GI: Reports No Symptoms
: Reports No Symptoms
Musculoskeletal: Reports No Symptoms
Skin: Reports No Symptoms
Neurological: Reports Other (off balance)
Endocrine: Reports No Symptoms
Hematologic/Lymphatic: Reports No Symptoms
Psych: Reports No Symptoms
Physical Exam
Vital Signs
Vital Signs
Temp Pulse Resp BP Pulse Ox
98.5 F 65 22 126/62 98
08/14/24 13:09 08/14/24 16:00 08/14/24 16:00 08/14/24 16:00 08/14/24 15:59
Physical Exam
General: Well Developed, Well Nourished and No Apparent Distress
HEENT: NormoCephalic, Moist mucous membranes and Atraumatic
Respiratory: Clear
Cardiac: S1/S2 and Regular Rhythm; No Murmur or Rub
GI: Soft, Non Tender, Non Distended and Normal Bowel Sounds; No Organomegaly
Rectal: Deferred by Provider
Musculoskeletal: No Clubbing, No Cyanosis and No Edema
Skin: No Rash
Neuro: AO x 3 and Nonfocal/grossly intact
Psych: Calm
Laboratory Results
-
08/14/24 14:07
08/14/24 14:36
Laboratory Results
PT 19.3 Sec (11.4-14.6) H 08/14/24 14:07
INR 1.57 08/14/24 14:07
APTT 39.2 Sec (23.4-35.0) H 08/14/24 14:07
Total Bilirubin 0.4 mg/dl (0.2-1.3) 08/14/24 14:36
AST 33 U/L (17-59) 08/14/24 14:36
ALT 38 U/L (0-50) 08/14/24 14:36
Alkaline Phosphatase 61 U/L (38-126) 08/14/24 14:36
Troponin I < 0.012 ng/ml 08/14/24 14:07
Data Reviewed
-
CT Scan: Report Reviewed by me
Lab Data: Labs Reviewed by me
Impression/Plan
-
# Off-balance likely BPPV /rule out acute CVA
# History of BPPV
-CT head neg
-Check orthostatics twice a day
-obtain MRI
-Obtain A1c and lipid
-Statin aspirin continued
-PT/OT consulted
-Neurology consulted
# History of bipolar
-Amitriptyline, chlordiazepoxide continued
-Umbarger, primidone continued
# Paroxysmal A-fib
-EKG with impression of sinus bradycardia
--Diltiazem, Coumadin continued
-Daily PT/INR
#Type 2 diabetes
-Hold Mounjaro
-Sliding scale
-Carb controlled diet
#Gastroesophageal reflux: Continue PPI.
#Hypercholesterolemia: Continue statin and check lipid profile
# DVT prophylaxis
-Coumadin
# CODE STATUS
-Full code
[2024-08-14 16:24] LABS: Ferritin 26.4 ng/ml (17.9-464.0)
[2024-08-14 16:26] LABS: TSH Reflex To Free T4 1.02 uIU/ml (0.47-4.68)
[2024-08-14 16:50] LABS: HDL Cholesterol 59 mg/dl; LDL Cholesterol, Calculated 50 mg/dl; Total Cholesterol 121 mg/dl (50-199); Triglyceride 63 mg/dl (10-149); Very Low Density Lipoprotein 12 mg/dl (0-30)
[2024-08-14 16:55] LABS: Folate 8.3 ng/ml (2.76-20); Vitamin B12 606 pg/ml (239-931)
--- NOTE | 2024-08-14 18:09 | W.PN.UPDATE ---
Update Note
Progress Note Update
This is an addendum to the H&P written by Esperanza Dahl on 08/14/2024. Patient seen and examined independently with LIAISON ENGINEER.
74-year-old male past medical history of bipolar disorder, atrial fibrillation on Coumadin, tremor secondary to lithium, neuropathy, hyperlipidemia, diabetes, IBS, GERD, sinus bradycardia, presenting with gait dysfunction and feeling off balance.
He recently came to the emergency room on 07/25 and was treated for with vestibular therapy BPPV with resolution of his symptoms. At physical therapy today no peripheral vertigo symptoms were noted.
Vitals are stable with chronic sinus bradycardia in the 40s to 50s.
[place] level 0.7. Primidone level pending. Check orthostatic vital signs. Check MRI brain.
Hold diltiazem due to bradycardia.
[2024-08-14 19:00] LABS: Glucose - Point of Care 85 mg/dl (70-99)
[2024-08-14] MEDS: ESKALITH REGULAR RELEASE 300 MG PO (19:52)
[2024-08-14] MEDS: MYSOLINE 100 MG PO (19:52)
[2024-08-14] MEDS: MAG-TAB SR 84 MG PO (19:52)
[2024-08-14] MEDS: COUMADIN 10 MG PO (19:54)
[2024-08-14 21:04] LABS: Glucose - Point of Care 142 mg/dl (70-99)
[2024-08-14] MEDS: ELAVIL 25 MG PO (21:49)
[2024-08-14] MEDS: ASPIR LOW (ENTERIC COATED) 81 MG PO (21:49)
[2024-08-14] MEDS: LIBRIUM 10 MG PO (21:49)
[2024-08-14] MEDS: CLARITIN 10 MG PO (21:49)
[2024-08-14] MEDS: PRED FORTE 1% EYE DROPS 1 DROP LEFT EYE (21:50)
[2024-08-14] MEDS: ALPHAGAN 0.2% EYE DROPS 1 DROP LEFT EYE (21:50)
[2024-08-14] MEDS: XALATAN OPHTHALMIC SOLUTION 1 DROP BOTH EYES (21:50)
[2024-08-15] VITALS (9 sets, daily range): BP systolic 114–150; BP diastolic 53–84; PULSE 59–73
[2024-08-15 07:21] LABS: Glucose - Point of Care 86 mg/dl (70-99)
[2024-08-15 07:57] LABS: INR 1.83; PT 21.4 Sec (11.4-14.6)
[2024-08-15 08:13] LABS: HDL Cholesterol 53 mg/dl; LDL Cholesterol, Calculated 54 mg/dl; Total Cholesterol 126 mg/dl (50-199); Triglyceride 95 mg/dl (10-149); Very Low Density Lipoprotein 19 mg/dl (0-30)
[2024-08-15] MEDS: MYSOLINE 100 MG PO ×2 (09:18→21:57)
[2024-08-15] MEDS: LIPITOR 20 MG PO (09:18)
[2024-08-15] MEDS: ESKALITH REGULAR RELEASE 300 MG PO ×2 (09:18→21:57)
[2024-08-15] MEDS: ALPHAGAN 0.2% EYE DROPS 1 DROP LEFT EYE ×3 (09:19→21:57)
[2024-08-15 10:07] LABS: Glycohemoglobin (HgbA1c) 5.5 % (4.0-5.6)
--- NOTE | 2024-08-15 10:08 | W.PN.NEURO.1 ---
Today's Communication / Plan
-
Supportive care
Vestibular therapy
Neuro Assessment/Plan
Assessment
Abrupt onset of worsening gait with scissor movements in a patient with known essential tremor secondary in part to the patient's use of lithium, and with known neuropathy
Differential diagnosis includes worsening vestibular function
Unremarkable MRI of brain
Unremarkable orthostatic blood pressures
Unremarkable levels of lithium and primidone
Limited bradycardia
Plan
Supportive care
Vestibular therapy
Subjective/Objective
Subjective Data
Date of Service: August 15, 2024
Near complete resolution of dizziness
Objective Data
Vital Signs
Temp Pulse Resp BP Pulse Ox
36.3 C 65 18 128/71 99
08/15/24 07:10 08/15/24 07:10 08/15/24 07:10 08/15/24 07:10 08/15/24 08:00
Lab Results
08/14/24 14:07
08/14/24 14:36
PT 21.4 Sec (11.4-14.6) H 08/15/24 06:43
INR 1.83 08/15/24 06:43
APTT 39.2 Sec (23.4-35.0) H 08/14/24 14:07
Sodium 138 mmol/L (135-145) 08/14/24 14:36
Potassium 4.9 mmol/L (3.5-5.1) 08/14/24 14:36
BUN 14 mg/dl (9-20) 08/14/24 14:36
Glucose 93 mg/dl (70-99) 08/14/24 14:36
Calcium 9.9 mg/dl (8.4-10.2) 08/14/24 14:36
LDL Cholesterol, Calc 54 mg/dl 08/15/24 06:43
Vitamin B12 606 pg/ml (239-931) 08/14/24 14:36
Patient Allergies
codeine Allergy (Verified 08/14/24 18:19)
HYPES PATIENT UP
thiothixene [From Navane] Allergy (Verified 08/14/24 18:19)
muscle spasms in neck
Review of Systems
-
History Source: Patient
All other systems: Reviewed and negative
Musculoskeletal: Back Pain; Negative Neck Pain
Neuro: Dizzy; Negative Headache
Physical Exam
-
General: No Apparent Distress and Appears Stated Age
Eyes: Round OU, [place] Conjunctivae and No Ptosis
HEENT: Anicteric and Moist Mucous Membranes
Neck: Full Range of Motion
Respiratory: No Dyspnea
Cardiac: No JVD
GI: Non-distended
Skin: Unremarkable
Extremities: No Clubbing, No Cyanosis and No Edema
Psych: Intact Judgement/Insight
Extended Neurological Exam
Mood & Affect: Mood Unremarkable and Affect Unremarkable
Attention Span & Concentration: Awake, Alert, Interactive and No Difficulty with 2 Step Request
Memory: Unremarkable
Tremor: Head Tremor Absent, Distal, Amplitude (Low), Intermittent and With Action
Speech: Quality Unremarkable and Quantity Unremarkable
Cranial Nerve II: Left Eye: Pupillary Size Unremarkable and Visual Tom Grossly Intact
Cranial Nerve II: Right Eye: Pupillary Size Unremarkable and Visual Tom Grossly Intact
Cranial Nerves III, IV, : Extraocular Movement: Grossly Intact
Cranial Nerve VII: Facial Symmetry: Normal Facial Symmetry
Cranial Nerve VIII: Hearing: Unremarkable Hearing to Normal Conversational Volume
Cranial Nerve XI: Shoulder Shrug: Unremarkable
Muscle Strength, Overall: Full in Upper Extremities
Muscle Bulk & Tone: Bulk Unremarkable and Tone Unremarkable
Pronator Drift: No Drift in Upper Extremities
Touch Sensation: Unremarkable
Coordination: Ekknes-[id number]-[id number] Testing Unremarkable
Gait & Station: Romberg Test Negative
Data Reviewed
-
MRI Head: Report Reviewed
Orthostatic Testing: Report Reviewed
Labs: Report Reviewed
Reviewed with: Physician, Nurse, Patient and Family
Old Records: Summarized
--- NOTE | 2024-08-15 10:21 | CM ---
Pt seen bedside w/ adult daughter. Pt lives w/ spouse and daughter in a 2nd flr condo. Condo is elevator accessible but pt uses stairs
Prev. independent, does not use DME for ambulating. Per OT, no OT needs
ST eval completed, no needs indicated
PT pending, await eval and poss recommendations
Pt denies SNF/VN/PT hx
Denies financial insecurities
Address, point of contacts and insurance verified
PCP: Dr. Italo Betts
Pharmacy: [facility]
SAENZ reviewed, pt given copy. Copy placed in chart
Plan: Home; no needs anticipated
CM will follow for potential d/c needs per PT eval
--- NOTE | 2024-08-15 10:34 | PTOTSP ---
SPEECH THERAPY SWALLOW AND SPEECH/LANGUAGE/COGNITIVE COMMUNICATION EVALUATION:
Patient exhibits grossly functional oropharyngeal swallow at this time. However, pt remains at risk for aspiration given history of choking episodes. Pt with history of VSE 11/2022 which indicated mild swallow delay, with trace laryngeal penetration
noted with thin and Mildly-thick liquids. No aspiration occurred. Report indicated pt remains at risk for aspiration due to rapid ingestion and talking while eating. Pt with history of choking episodes x2 requiring Heimlich. Pt reported since VSE,
dysphagia symptoms have been well-controlled, and pt reported he has been implementing safe swallow strategies and aspiration precautions at home. Education provided to pt regarding aspiration precautions. Patient verbally reported understanding.
Currently without pulmonary/respiratory distress. MRI negative for acute CVA at this time. Pt reported he feels at baseline level of functioning for swallowing. Suspect pt at baseline level of functioning. Recommend continue Regular texture diet
(avoiding hard/dense textures), thin liquids. Medications whole with liquid, one at a time. Aspiration precautions: Upright positioning; Small single sips/bites; Slow rate of intake; Alternate textures; Rest breaks during meals; No talking while
eating; Reduce distractions during meals; Remain upright 30 minutes after eating/drinking; Moisten foods with sauces/gravies/jams/jellies as needed. Skilled ST services are not indicated at this time. Should pt exhibit new or worsened dysphagia
symptoms or concern for aspiration, please contact ST for re-assessment.
Patient exhibits WFL-Mildly impaired Expressive language and Cognitive Communication impairments characterized by difficulties with STM and word finding during structured tasks. Pt also endorsed anxiety as a contributing factor. Pt endorsed mild
word finding and STM deficits at baseline. MOCA version 8.1 administered; Pt score 24/30, indicating slightly below normal level (greater than or equal to 26/30). MRI currently negative for acute CVA. Suspect pt is at baseline level of
speech/language/cognitive communication skills at this time. Skilled ST services are not indicated at this time.
RECOMMEND:
1) Regular texture diet (avoiding hard/dense textures), thin liquids
2) Medications whole with liquid, one at a time
3) Aspiration precautions: Upright positioning; Small single sips/bites; Slow rate of intake; Alternate textures; Rest breaks during meals; No talking while eating; Reduce distractions during meals; Remain upright 30 minutes after eating/drinking;
Moisten foods with sauces/gravies/jams/jellies as needed
4) Skilled ST services are not indicated at this time
[2024-08-15 11:04] LABS: Glucose - Point of Care 90 mg/dl (70-99)
[2024-08-15 16:35] LABS: Glucose - Point of Care 88 mg/dl (70-99)
[2024-08-15] MEDS: COUMADIN 10 MG PO (17:21)
[2024-08-15] MEDS: MAG-TAB SR 84 MG PO (17:21)
[2024-08-15 21:30] LABS: Glucose - Point of Care 119 mg/dl (70-99)
[2024-08-15] MEDS: LIBRIUM 10 MG PO (21:57)
[2024-08-15] MEDS: CLARITIN 10 MG PO (21:57)
[2024-08-15] MEDS: ELAVIL 25 MG PO (21:57)
[2024-08-15] MEDS: ASPIR LOW (ENTERIC COATED) 81 MG PO (21:57)
[2024-08-15] MEDS: XALATAN OPHTHALMIC SOLUTION 1 DROP BOTH EYES (21:57)
[2024-08-15] MEDS: PRED FORTE 1% EYE DROPS 1 DROP LEFT EYE (21:58)
[2024-08-16 03:38] VITALS: BP 127/72
[2024-08-16 07:00] VITALS: BP 121/68; BP 134/65; BP 134/71; PULSE 66; PULSE 67; PULSE 77
--- NOTE | 2024-08-16 07:36 | W.PN.HOSP.TC ---
Addendum entered and electronically signed by Yue Marie MD 08/16/24 12:49:
Discussed with patient who reports thyroid nodule is known to him has established regular follow up with Cattery Operator for surveillance
Mounjaro prescribed for diabetes and weight loss, discussed with patient regarding current A1c 5.5 no longer diabetic, recommended to discuss with primary care provider as to whether medication is still necessary at this time- could continue for
weight loss purposes.
Addendum entered and electronically signed by Yue Marie MD 08/16/24 12:29:
Correction to following documentation. A1c 5.5 patient not diabetic ok to resume mounjaro for weight loss mgmt
Home Cardizem placed on hold d/t sinus bradycardia since improved
Original Note:
Today's Communication/Plan
-
discharge
Assessment / Plan
Assessment / Plan
Physical Exam
General: No acute distress appears comfortable at this time
HEENT: NormoCephalic, Moist mucous membranes and Atraumatic. Horizontal Nystagmus noted on lateral gaze. Left pupil larger then Right less reactive
Respiratory: Clear
Cardiac: S1/S2 and Regular Rhythm; No Murmur or Rub
GI: Soft, Non Tender, Non Distended and Normal Bowel Sounds; No Organomegaly
Musculoskeletal: No Clubbing, No Cyanosis and No Edema
Skin: No Rash
Neuro: AO x 3 and Nonfocal/grossly intact
Psych: Calm
74F bipolar disorder A-fib on Coumadin p/w feeling off balance. Recently had outpt Vestibular therapy but was unable to complete d/t aforementioned balance issues. Daughter tried to walk him to his car, and he had several episodes where he lost
his footing. Reports issues with vertigo in the past and had an acute issue on July 25, at which time he was seen in the hospital. Patient had CT brain and CT angio of his head and neck, without acute pathology. Patient was thought to have
BPPV, was discharged with vestibular therapy.
# Off-balance likely BPPV /ruled out CVA
# History of BPPV
-CT head appreciated neg for acute abn's
-CTA head appreciated no acute abn's, 4.6 cm right lobe thyroid nodule noted (outpt Thyroid US with primary care provider recommended)
-Orthostatics Negative
-MRI Brain appreciated no evidence acute infarct or intracranial hemorrhage
-A1c 5.5 and lipid appreciated wnl
-Statin aspirin continued
-PT/OT consult appreciated outpt PT recommended
-Neurology consult appreciated
-symptoms since resolved, outpatient follow up with ENT recommended
# History of bipolar
-Amitriptyline, chlordiazepoxide continued
-Burdette, primidone continued
# Paroxysmal A-fib
-EKG with impression of sinus bradycardia
--Diltiazem, Coumadin continued
#Type 2 diabetes
-resume Mounjaro on disharge
-Sliding scale
-Carb controlled diet
#Gastroesophageal reflux: Continue PPI.
#Hypercholesterolemia: Continue statin
# DVT prophylaxis
-Coumadin
# CODE STATUS
-Full code
Medically stable for discharge home with outpatient follow up recommendations.
Total Time Preparing Discharge __40 minutes including examination of the patient, summary of the hospital stay, instructions for continuing care to all relevant caregivers; and preparation of discharge records, prescriptions, and referral
forms if necessary.
Anticipated Discharge: Today
Subjective/Interval History
-
Date of Service: August 16, 2024
Seen and examined at bedside in no acute distress resting comfortably in bed. Reports resolution of dizziness/vertigo. Overall reports feeling well, eager to go home.
Objective Data
-
Vital Signs:
Vital Signs
Temp Pulse Resp BP Pulse Ox
97.4 F 67 18 127/72 97
08/16/24 03:38 08/16/24 03:38 08/16/24 03:38 08/16/24 03:38 08/16/24 03:38
I&O
08/15/24 08/16/24 08/17/24
06:59 06:59 06:59
Intake Total 120 / 120 700 / 700
Balance 120 / 120 700 / 700
[2024-08-16 07:39] LABS: Glucose - Point of Care 89 mg/dl (70-99)
[2024-08-16] MEDS: ALPHAGAN 0.2% EYE DROPS 1 DROP LEFT EYE (07:54)
[2024-08-16] MEDS: LIPITOR 20 MG PO (07:54)
[2024-08-16] MEDS: ESKALITH REGULAR RELEASE 300 MG PO (07:54)
[2024-08-16] MEDS: MYSOLINE 100 MG PO (07:54)
[2024-08-16 11:00] VITALS: BP 123/69
[2024-08-16 11:57] LABS: Glucose - Point of Care 90 mg/dl (70-99)
--- NOTE | 2024-08-16 12:50 | W.DCSUMMARY ---
Discharge Summary
Discharge Data
Date of Admission: 08/14/24
Date of Discharge: 08/16/24
-
Pending Results: No
Discharge Plan
-
Patient Disposition: Home (Routine Discharge)
Discharge Diagnosis/Procedures: Vestibular Dysfunction, Benign Paroxysmal Positional Vertigo, stroke ruled out
Condition: Fair
Diet: Regular
Activity: As tolerated
Driving Restrictions: As prior to admission
Bathing Restrictions: None
Other Services: PT
Activity Restrictions/Additional Instructions:
Please follow up with primary care provider in 1 week of discharge and ENT specialist in 2 weeks of discharge.
Cardizem placed on hold due to sinus bradycardia, low heart rate, possibly contributing to symptoms. Follow up with primary care provider, project manager industrial, or other healthcare provider involved in your care to determine when safe to resume, if
necessary to resume, and/or if an alternative agent is required instead.
Please take medications as prescribed/recommended and follow up with primary care provider and/or other healthcare provider involved in your care further adjustments to your medication regimen as necessary.
Referrals:
Italo Betts MD [Family Provider] - in one week
Fernando Subramanian MD [Active] - in two weeks
Prescriptions:
Continued
omega [id number] oil [Fish Oil] 1 EACH capsule
1 ea PO TID
primidone 50 MG tablet
100 mg PO BID
aspirin 81 MG tablet,delayed release (DR/EC)
81 mg PO HS
Patient Comments:
Pt took 4 of these this am
vitamin B complex 1 TAB tablet
1 tab PO DAILY
albuterol sulfate 18 GM HFA aerosol inhaler
1 - 2 puff IH R Q4HPRN PRN (Reason: SOB)
magnesium oxide 400 mg magnesium Tablet
400 mg PO QPM
latanoprost 0.005 % Drops
1 drp BOTH EYES HS
desonide 0.05 % Cream
1 applic TOPICAL DAILYPRN PRN (Reason: ears)
atorvastatin 20 mg Tablet
20 mg PO DAILY
fexofenadine 180 mg Tablet
180 mg PO HS
amitriptyline 25 mg Tablet
25 mg PO HS
prednisolone acetate 1 % Drops,Suspension
1 drp LEFT EYE HS
lithium carbonate 300 mg Capsule
300 mg PO BID
pantoprazole 40 mg Tablet,Delayed Release (Dr/Ec)
40 mg PO DAILYPRN PRN (Reason: gerd)
erythromycin 5 mg/gram (0.5 %) Ointment
1 applic BOTH EYES DAILYPRN PRN (Reason: inflammation)
warfarin 5 mg Tablet
7.5 mg PO SUSA
brimonidine 0.2 % Drops
1 drp LEFT EYE TID
chlordiazepoxide HCl 10 mg Capsule
10 mg PO HS
fluticasone propionate 50 mcg/actuation [place],Suspension
1 spray INTRANASAL DAILYPRN PRN (Reason: congestion)
cinnamon bark [Cinnamon] 500 mg Capsule
500 mg PO BID
cranberry 450 mg Tablet
450 mg PO DAILY
Mounjaro 7.5 mg/0.5 mL Pen Injector
7.5 mg SC TH
warfarin [Jantoven] 5 MG tablet
10 mg PO MOTUWETHFR
Held
diltiazem HCl 120 mg Capsule,Extended Release 24 Hr
120 mg PO DAILY
Hold Instructions: Placed on hold due to sinus bradycardia. Follow up with primary care provider, project manager industrial, or other healthcare provider involved in your care to determine when safe to resume, if necessary to resume, and/or if an alternative
agent is required instead.
Discharge Orders:
Discharge Patient (As Directed); Ordered 08/16/24
Ordered By: Yue Marie
Discharge Date and Time
Print Language: SLOVENIAN
--- NOTE | 2024-08-16 13:21 | CM ---
Home no needs.
Plan; Home no needs
== END 2024-08-16 13:18 | disposition home or self-care (01) ==
LOC: 4 WEST ACU 16:39
PROVIDERS: Registered Nurse; ADMITTING PHYSICIAN Hospitalist; ATTENDING PHYSICIAN Internal Medicine; CONSULT PHYSICIAN Psychiatry & Neurology Neurology; EMERGENCY PHYSICIAN Student in an Organized Health Care Education/Training Program; FAMILY PHYSICIAN Internal Medicine
DX: H81.10 Benign paroxysmal vertigo, unspecified ear (principal); F31.9 Bipolar disorder, unspecified; I48.0 Paroxysmal atrial fibrillation; H55.00 Unspecified nystagmus; G62.9 Polyneuropathy, unspecified; R00.1 Bradycardia, unspecified; R26.89 Other abnormalities of gait and mobility; H91.93 Unspecified hearing loss, bilateral; G25.0 Essential tremor; E04.1 Nontoxic single thyroid nodule; E78.00 Pure hypercholesterolemia, unspecified; K58.9 Irritable bowel syndrome, unspecified; R07.9 Chest pain, unspecified; K21.9 Gastro-esophageal reflux disease without esophagitis; I10 Essential (primary) hypertension; J32.9 Chronic sinusitis, unspecified; M47.812 Spondylosis without myelopathy or radiculopathy, cervical region; I67.81 Acute cerebrovascular insufficiency; Z88.5 Allergy status to narcotic agent; Z79.01 Long term (current) use of anticoagulants; Z90.49 Acquired absence of other specified parts of digestive tract; Z87.891 Personal history of nicotine dependence; Z79.85 Long-term (current) use of injectable non-insulin antidiabetic drugs
CPT/HCPCS: 70450; 70551; 80053; 80061; 80178; 82607; 82728; 82746; 82962; 83036; 84443; 84484; 85025; 85610; 85652; 85730; 92523; 92610; 93005; 94660; 97162; 97166; 99285; G0378

== ENCOUNTER → 2024-10-23 17:49 | Outpatient (REF) | payer MEDICARE, OTHER, SELFPAY | LOC: RAD 17:49 | PROVIDERS: ATTENDING PHYSICIAN Internal Medicine | DX: R22.30 Localized swelling, mass and lump, unspecified upper limb (principal); W19.XXXA Unspecified fall, initial encounter | CPT/HCPCS: 73030; 73070; 73100; 73120 ==

== ENCOUNTER → 2025-07-17 12:01 | Outpatient (REF) | payer MEDICARE, OTHER, SELFPAY | LOC: HWRCS 12:01 | PROVIDERS: ATTENDING PHYSICIAN Internal Medicine Interventional Cardiology; FAMILY PHYSICIAN Internal Medicine | DX: I48.0 Paroxysmal atrial fibrillation (principal); I25.10 Atherosclerotic heart disease of native coronary artery without angina pectoris; R06.02 Shortness of breath; R07.9 Chest pain, unspecified | CPT/HCPCS: 78452; 93017; A9500; J2785 ==

== ENCOUNTER → 2025-07-23 15:27 | Outpatient (REF) | payer MEDICARE, OTHER, SELFPAY | LOC: RAD 15:27 | PROVIDERS: ATTENDING PHYSICIAN Internal Medicine Cardiovascular Disease; FAMILY PHYSICIAN Internal Medicine | DX: I48.0 Paroxysmal atrial fibrillation (principal) | CPT/HCPCS: 75572; Q9967 ==

== ENCOUNTER → 2025-07-28 07:39 | Outpatient (REF) | payer MEDICARE, OTHER, SELFPAY | LOC: HWRCS 07:39 | PROVIDERS: ATTENDING PHYSICIAN Internal Medicine Interventional Cardiology; FAMILY PHYSICIAN Internal Medicine | DX: I48.0 Paroxysmal atrial fibrillation (principal); I25.10 Atherosclerotic heart disease of native coronary artery without angina pectoris; R06.02 Shortness of breath | CPT/HCPCS: 93306 ==

== ENCOUNTER → 2025-08-17 15:40 | Outpatient (REF) | payer MEDICARE, OTHER, SELFPAY | LOC: RAD 15:40 | PROVIDERS: FAMILY PHYSICIAN Internal Medicine | DX: R05.9 Cough, unspecified (principal) | CPT/HCPCS: 71046 ==

== ENCOUNTER → 2025-08-20 09:40 | Outpatient (REF) | payer MEDICARE, OTHER, SELFPAY ==
[2025-08-20 10:35] LABS: Hematocrit 43.0 % (39.0-52.0); Hemoglobin 14.4 g/dL (13.0-18.0); Mean Corp Hgb Conc. 33.5 g/dL (33.0-37.0); Mean Corpuscular Volume 89.8 fL (80.0-94.0); Nucleated Red Blood Cells % 0 % (-); Platelet Count 195 10^3/uL (130-400); Red Cell Dist. Width 14.2 % (11.5-14.5)
[2025-08-20 10:47] LABS: INR 1.80; PT 21.4 Sec (11.4-14.6)
[2025-08-20 13:14] LABS: ALT (SGPT) 68 U/L (0-50); AST (SGOT) 35 U/L (17-59); Albumin 4.5 g/dl (3.5-5.0); Alkaline Phosphatase 68 U/L (38-126); Blood Urea Nitrogen 16 mg/dl (9-20); Calcium 10.6 mg/dl (8.4-10.2); Carbon Dioxide 27 mmol/L (22-30); Chloride 104 mmol/L (98-107); Glucose 96 mg/dl (70-99); Potassium 4.7 mmol/L (3.5-5.1); Sodium 134 mmol/L (135-145); Total Protein 7.3 g/dl (6.3-8.2); eGFR > 60.00
== END ==
LOC: SDSPAT 09:40
PROVIDERS: ATTENDING PHYSICIAN Internal Medicine Cardiovascular Disease; FAMILY PHYSICIAN Internal Medicine; OTHER PHYSICIAN Internal Medicine Interventional Cardiology
DX: I48.0 Paroxysmal atrial fibrillation (principal)
CPT/HCPCS: 36415; 80053; 85025; 85610; 86850; 86900; 86901; 93005

== ENCOUNTER 2025-09-01 07:41 | Inpatient (IN) | payer MEDICARE, OTHER, SELFPAY ==
[2025-08-20 09:49] VITALS: BMI 32.5
[2025-09-01] VITALS (12 sets, daily range): BP systolic 127–147; BP diastolic 60–78; BMI 31.1
[2025-09-01 08:50] LABS: Glucose - Point of Care 82 mg/dl (70-99)
[2025-09-01 08:57] LABS: INR 1.38; PT 17.1 Sec (11.4-14.6)
[2025-09-01 11:36] LABS: ACT-LR - POC > 397 Seconds (116-155)
[2025-09-01 11:44] LABS: ACT-LR - POC 395 Seconds (116-155)
[2025-09-01 12:06] LABS: ACT-LR - POC 351 Seconds (116-155)
[2025-09-01 12:30] LABS: ACT-LR - POC 351 Seconds (116-155)
[2025-09-01 12:55] LABS: ACT-LR - POC 358 Seconds (116-155)
--- NOTE | 2025-09-01 12:59 | ITS.CL.ABL ---
Food Adviser - Ablation
Ablation
Procedure Report:
AFIB ablation / Watchman implantation:
Mr. Salazar is a very pleasant 75 yr old gentleman, history of paroxysmal atrial fibrillation, borderline hypertension, hyperlipidemia, elevated calcium score on CT over 600, with recurrent left eye bleeds with significant ambulatory dysfunction and
falls is recommended a placement of Watchman with atrial fibrillation ablation.
CHADS-VASc score: 5 (age, hypertension, CAD and diabetes)
HAS-BLED score: 5 (hypertension, predisposition/prior bleeding, labile INR, age and anticoagulant)
Date of the Procedure:
09/01/2025
Indications:
Paroxysmal atrial fibrillation, recurrent bleeding with high CHADSVasc score
Pre-Operative Diagnosis:
Paroxysmal atrial fibrillation, recurrent bleeding with high CHADSVasc score
Post-Operative Diagnosis:
Paroxysmal atrial fibrillation, recurrent bleeding with high CHADSVasc score
Procedure Performed:
Atrial fibrillation ablation with Pulsed-Field approach for pulmonary vein isolation
Posterior wall isolation
Left atrial appendage occlusion with Watchman implantation (20 mm Watchman FLX Pro left atrial appendage closure device)
Performing Physician:
Ablation and TSSP: Adelaide Seo MD
Implant: Lonnie Calvert MD PHD
JENNIFER: Natacha Sexton M.D.
Assistants:
EP staff
Anesthesia:
See anesthesia records
Detailed Description of the Procedure:
Written informed consent was obtained from the patient after a full explanation of the risks and benefits of the procedure including the risks of sedation and anesthesia.
The patient was brought to the electrophysiology laboratory in stable condition in fasting state. Continuous electrocardiographic and hemodynamic monitoring was initiated.
The initial rhythm was sinus.
The procedure site was meticulously prepared with surgical scrub and allowed to dry with no pooling. Sterile draping was applied to cover the procedure site. The image intensifier was draped with sterile bag and positioned over the patient. After
infusion of local anesthetic, vascular access was obtained under ultrasound guidance and sheaths were placed over guide wire as detailed below.
Sheath and Catheter Placement:
The following catheters / sheaths were placed
Sheaths:
? 17Fr steerable sheath (Faradrive�, TabSprint) in right femoral that later swapped to Watchman delivery sheath that was later swapped to Navneet-Steer sheath
? 9Fr in right femoral vein
Catheters:
? GENNARO HD Grid mapping catheter � at locations of RA, LA
? Farawave� PFA catheter
? ICE catheter �Farias ViewFlex - at locations of RA, SVC, and RV.
? Watchman catheter
Heparin bolus given and drip started.
Intracardiac ECHO:
An 8-Bolivian AcuNav intracardiac ECHO (ICE) probe was advanced through the 9-Bolivian sheath in the right femoral vein into the right atrium under fluoroscopic and ICE ultrasound image guidance and a baseline ECHO study was performed. The left atrial
size was normal. There was moderate tricuspid regurgitation. There was normal left ventricular systolic functions. There is small pericardial effusion. All the four veins were identified and has flow identified. There was sluggish flow noted in the
ELANA. There was no ELANA clot noted.
During the procedure, ICE was used for monitoring of complications, guidance of trans-septal puncture, monitor the catheter position and tracking ablation lesions. No change in the pericardial space noted throughout the procedure.
Trans-septal Puncture:
Heparin was initiated and infused to maintain appropriate ACT. A pigtail guidewire was advanced through the 8-Bolivian sheath in the right femoral vein into the superior vena cava under fluoroscopic and ICE guidance. The 9-Bolivian sheath was exchanged
for a Faradrive sheath which was advanced into the superior vena cava. A trans-septal RF pigtail via Locately connect system was utilized to perform the trans-septal puncture. The apparatus was withdrawn until it was in contact with the fossa
ovalis. The position was adjusted based on fluoroscopy and ultrasound images from ICE. Under fluoroscopic, hemodynamic and ICE ultrasound guidance, left atrium was cannulated by applying RF energy. Once atrial septum was cannulated, the pigtail wire
was advanced through the needle into the left atrium. The guide wire was advanced into the left superior pulmonary vein. Both the sheath and the dilator was advanced into the left atrium. The dilator with the needle was withdrawn. Blood was
aspirated from the Faradrive sheath and arterial blood confirmed. The sheath was flushed. Saline injection noted into the left atrium on ICE. The mapping catheter was advanced in the sheath into the left pulmonary vein. Left atrial pressure was
measured.
3D Electroanatomic Mapping:
Using the HD Grid catheter advanced through sheath into the left atrium, an electroanatomic map (EAM) of the left atrium was created using [employer] mapping system. The map was used for localization of catheter position and tacking of ablation
lesions.
The EAM of the left atrium showed 4 pulmonary veins with all 4 veins electrically connected to the body the LA. It showed scattered scar on the posterior wall of the LA. The LA was mildly dilated in size.
Following the EAM, preparation were made for ablation.
Ablation:
Ablation # 1: Pulmonary vein Isolation:
Glycopyrrolate 0.2 mg was given prior to the placement of ablation. Using [employer] pulsed wave ablation system, pulmonary vein isolation was achieved. First the ablation catheter was placed in the LSPV and ostial ablation lesions were performed in a
counter clock freeman approach all around the PV ostium circumferentially. Then the catheter was placed on the antral location and multiple ablation lesions were placed circumferentially on the antrum of the vein.
In the similar fashion, the LIPV were isolated.
Then the catheter was moved to right sided veins. The ostial and antral ablations were placed as noted above.
Ablation #2: Posterior wall isolation:
There was fractioanted damaged signals noted on the posterior wall and decision was made to proceed with posterior wall isolation.
Using the pulsed field ablation catheter, the catheter was placed on the posterior wall and moved around the posterior wall to have adequate contact and ablations were placed isolating the posterior wall.
EPS and Confirmation of the PVI and bidirectional block:
Following achievement of entrance block at the pulmonary veins, pacing from the HD catheter in each of the four veins at 10 milliamps for 2 milliseconds showed entrance and exit block. All PVI were rechecked at the end of the case and remained
isolated. Entrance and exit block were demonstrated in all veins.
Post ablation Electroanatomic mapping:
Once ablation was completed, the EAM of the LA was done again in sinus rhythm with excellent demarcation of LA myocardium and isolated antral tissue. There were signals noted on the anterior wall of the LSPV and were tested. These were the far field
ELANA signals as the ELANA was sitting on the LSPV. There was exit block confirmed and the signals were dissociated.
The ELANA had healthy signals and was not isolated.
Total Number PFA ablation lesions
64
Watchman implantation:
Using the trans-septal RF pigtail, the Faradrive sheath was swapped with Watchman delivery sheath over the RF pigtail. A curved pig tail was advanced over the guide wire into the left atrium and the wire was removed.
Left atrial appendage atriography:
The pigtail was advanced into the ELANA and was confirmed on fluoroscopy and JENNIFER. The contrast was injected and the ELANA shape was recorded in CAAL /Caudal view (17/17 degrees). The size of the ELANA was again checked and confirmed reviewing the JENNIFER and
the fluoroscopy along with previously obtained CT scan images.
Watchman Deployment:
The Watchman delivery sheath was advanced into the ELANA over the pigtail till the right marker was at the location of the orifice line marked on the screen. The pigtail was removed and the Watchman delivery system was advanced through the sheath into
the ELANA till it was aligned with the outer sheath marker inside the ELANA. The watchman sheath was clicked with the outer sheath. Once acceptable location achieved, the outer sheath was pulled back keeping the device steady at the ELANA location till a
ball of the device was formed under fluoroscopic guidance. The whole system was advanced further into the ELANA till adequate depth is achieved into the ELANA. The ELANA occluder was deployed and expanded adequately anchoring to the ELANA. The device was
kept anchored with stable pressure to that location for 10 seconds.
The Watchman was noted to have shoulder out and was not completely inside the appendage and decision was made to recapture and implant deeper inside the ELANA.
There remained significant shoulder and decision was made to switch to Navneet-Steer sheath for better placement of the device in the ELANA. The watchman was redoployed as noted above using Trusteer without any significant shoulder in a deeper location.
The new location has much better appearance and the device had minimal shoulder present now after the tug test.
The JENNIFER image confirmed adequate expansion. The tug test was done that showed the device is anchored well and is not able to come out. The compression was 17%, 12% and 16% on the three sides. There was no significant leak noted on the Doppler via
JENNIFER. A contrast was injected showing adequate location of the device at the mouth of the ELANA and no leak demonstrated.
The device was deployed by unscrewing the Watchman device and releasing from the connecting wire. The wire was pulled back into the sheath and the sheath was pulled out of the LA.
Implanted device:
WATCHMAN FLX Pro � 20mm
Procedure End
JENNIFER study was done again that showed no epicardial accumulation that was unchanged from earlier. A repeated images showed no change in the pericardial space. No complications noted.
Following the completion of the deployment, catheters were removed. Protamine 40 mg was given at the end of the procedure and ACT was checked repeatedly. The sheath was removed and hemostasis achieved with Figure of 8 and manual compression after
acceptable ACT is achieved.
Left atrial Pressure:
Pre-ablation: Mean LA pressure was 12mmHg
Post-ablation: Mean LA pressure was 19mmHg
Estimated Blood loss:
<10 cc
Specimens Removed:
None.
Implants / Devices:
None
Urine output:
None
Packs / Drains/ Tubes:
None
Instrument / Sponge Count Correct:
Yes
Complications of the Procedure:
None
Condition of Patient at Time of Transfer:
Hemodynamically stable with no neurological or vascular compromise.
Summary:
Successful atrial fibrillation ablation with Pulsed Field approach for pulmonary vein isolation and posterior wall isolation.
Successful implantation of the left atrial occlusion device (WATCHMAN FLX Pro� 20mm)
Post procedure Plan for anticoagulation:
Continue warfarin for 3 months.
Based on 3 months JENNIFER, will plan to switch to ASA 81 mg indefinitely.
Figures from the Procedure:
Figure 1: The electroanatomic mapping (EAM) of the left atrium with bipolar voltage (purple indicates normal electrical activity with evans as no myocardial muscle electric activity indicating a line of block or scar.
--- NOTE | 2025-09-01 14:04 | ITS.CL.PN ---
Paster Operator - Procedure Note
Procedure
Procedure Note:
WATCHMAN LEFT ATRIAL APPENDAGE OCCLUSION REPORT
Date of Procedure: 09/01/2025
Referring: Dr. Mega Celestin MD
Indication: atrial fibrillation with high bleeding risk and high stroke risk
Operators: Lonnie Calvert MD, PhD (interventional cardiology); Dr. Adelaide Seo MD (electrophysiology); Dr. Karlee Howell DO (cardiac imaging)
Anesthesia: general anesthesia provided by the anesthesia staff
PROCEDURE: left atrial appendage occlusion with a 20 mm Watchman FLX as part of concomitant PVI/Watchman procedure
HEMODYNAMIC DATA
LA 19 mmHg
PROCEDURE NARRATIVE:
The patient was intubated and sedated by anesthesiology and then prepped and draped in standard sterile fashion. PVI was performed via transeptal puncture by Dr. Seo (please see separate procedure note) with heparin anticoagulation to maintain
ACT>300. At the conclusion of the PVI, a JENNIFER probe was placed by cardiology and imaging performed demonstrating no left atrial appendage thrombus and no pericardial effusion.
The PVI sheath was exchanged for the Watchman sheath in the left atrium. A 5F pigtail catheter was advanced through the sheath and placed in the left atrial appendage, which was noted to have a superior axis with a very rightward trajectory of the
distal chicken wing lobe. An appendage gram was performed demonstrating anatomy suitable for a 20 mm Watchman FLX device. The device was prepped on the back table, the pigtail catheter removed, and the device delivered via the sheath to the left
atrial appendage by Dr. Calvert. The device was deployed slowly under continuous fluoroscopic and JENNIFER visualization. Unfortunately, given the superior takeoff, it was challening to deploy without leaving a large mitral shoulder. The device was
removed and the Watchman double curve sheath exchanged over wire for a TruSteer sheath and the pigtail again inserted to position the sheath in the appendage. The 20 mm Watchman FLX device was again advanced and this time aided by flexion of the
device after partial deployment, the device was able to be deployed with minimal mitral shoulder. JENNIFER imaging was performed to assess PASS criteria. The device demonstrated excellent positioning, anchor stability on tug test, appropriate sizing with
12-17% compression, and appropriate seal with no leak at 0, 45, 90, or 135 degrees. Given PASS criteria were met, the device was then released.
The delivery system retracted back into the sheath and removed from the body. The sheath was retracted into the right atrium with JENNIFER demonstrating no significant R-L shunt or pericardial effusion. The sheaths were removed and the venotomy closed
with [id number] knot. The patient was extubated and tolerated the procedure well.
CONCLUSION
1. successful deployment of a 20 mm Watchman FLX device with TruSteer catheter under fluoroscopic and JENNIFER guidance (as part of combined PVI/Watchman procedure)
RECOMMENDATIONS:
1. anticoagulation with warfarin for 3 months
2. repeat JENNIFER in 3 months
Copy to: Mega Celestin MD (box coverer hand); Italo Betts MD (PCP)
Signed: Lonnie Calvert MD, PhD
--- NOTE | 2025-09-02 12:41 | W.DS.TRANS ---
DC Summary - [employer]
-
Discharge Instructions:
Discharge Diagnosis/Procedures Atrial fibrillation post ablation and Watchman
Diet Low Cholesterol
Driving Restrictions No driving for 24 hours
Blood Work Check INR on Sunday
Others Tests A follow up JENNIFER has been scheduled for you at
[facility] with
Lakshmi on 12/01/2025. His office will contact
you with instructions.You will receive a call
the day before with arrival time.
Instructions:
Stand-Alone Forms: DC Instructions- Cath/EP Lab
Changes to Home Medications: No
Discharge Medications:
DC Medications w/original date entered in [employer]
primidone 50 mg tablet 100 mg PO QPM 02/05/19
albuterol sulfate 90 mcg/actuation aerosol inhaler 1 - 2 puff IH R [id number] PRN SOB 02/17/22
brimonidine 0.2 % eye drops 1 drp LEFT EYE TID 08/14/24
chlordiazepoxide HCl 10 mg capsule 10 mg PO HS 08/14/24
cinnamon bark 500 mg capsule (Cinnamon) 500 mg PO BID 08/14/24
cranberry fruit 450 mg tablet (cranberry) 450 mg PO DAILY 08/14/24
desonide 0.05 % topical cream 1 applic topical DAILYPRN PRN ears 08/14/24
fluticasone propionate 50 mcg/actuation nasal spray,suspension 1 spray intranasal DAILYPRN PRN congestion 08/14/24
latanoprost 0.005 % eye drops 1 drp BOTH EYES HS 08/14/24
lithium carbonate 300 mg capsule 300 mg PO BID 08/14/24
pantoprazole 40 mg tablet,delayed release 40 mg PO DAILY 08/14/24
prednisolone acetate 1 % eye drops,suspension 1 drp LEFT EYE BID 08/14/24
tirzepatide 7.5 mg/0.5 mL subcutaneous pen injector (Mounjaro) 7.5 mg SC TH 08/14/24
warfarin 5 mg tablet 7.5 mg PO SUTUTHSA 08/14/24
warfarin 5 mg tablet (Jantoven) 10 mg PO MOWEFR 08/14/24
Slava Benfotiamine 250 mg PO DAILY Supplement 08/18/25
amitriptyline 10 mg tablet 10 mg PO HS 08/18/25
ammonium lactate 12 % topical cream 1 applic topical DAILY PRN rash 08/18/25
atorvastatin 40 mg tablet 40 mg PO QPM 08/18/25
azelastine 137 mcg (0.1 %) nasal spray 1 spray intranasal BID PRN nasal congestion 08/18/25
benzonatate 200 mg capsule 200 mg PO BID PRN cough 08/18/25
cholecalciferol (vitamin D3) 125 mcg (5,000 unit) tablet (Vitamin D3) 125 mcg PO DAILY 08/18/25
chromium 500 mg PO DAILY 08/18/25
dorzolamide 22.3 mg-timolol 6.8 mg/mL eye drops 1 drp ophthalmic (eye) BID left eye 08/18/25
fexofenadine 180 mg tablet 180 mg PO DAILY 08/18/25
guar gum 1 tbsp PO QPM 08/18/25
peg 400-propylene glycol (PF) 0.4 %-0.3 % eye drops in a dropperette 1 drp ophthalmic (eye) DAILY PRN dry eye 08/18/25
polyethylene glycol 3350 17 gram oral powder packet (Miralax) 17 g PO QPM 08/18/25
primidone 50 mg tablet 50 mg PO DAILY 08/18/25
zinc 20 mg PO DAILY 08/18/25
Home Medication Changes
Pending Results: No
== END 2025-09-01 18:25 | disposition home or self-care (01) | DRG 317 ==
LOC: CATH-IN 07:41
PROVIDERS: Student in an Organized Health Care Education/Training Program; ADMITTING PHYSICIAN Internal Medicine Cardiovascular Disease; FAMILY PHYSICIAN Internal Medicine
PROC: 02L73DK Occlusion of Left Atrial Appendage with Intraluminal Device, Percutaneous Approach (ICD-10-PCS; 2025-09-01)
PROC: 4A0234Z Measurement of Cardiac Electrical Activity, Percutaneous Approach (ICD-10-PCS; 2025-09-01)
PROC: 02583ZZ Destruction of Conduction Mechanism, Percutaneous Approach (ICD-10-PCS; 2025-09-01)
DX: I48.0 Paroxysmal atrial fibrillation (principal); Z00.6 Encounter for examination for normal comparison and control in clinical research program; Z79.01 Long term (current) use of anticoagulants; Z68.32 Body mass index [BMI] 32.0-32.9, adult; E66.9 Obesity, unspecified; I10 Essential (primary) hypertension; E78.5 Hyperlipidemia, unspecified; Z86.0100 Personal history of colon polyps, unspecified; K21.9 Gastro-esophageal reflux disease without esophagitis; E11.40 Type 2 diabetes mellitus with diabetic neuropathy, unspecified; G47.33 Obstructive sleep apnea (adult) (pediatric); Z87.891 Personal history of nicotine dependence; F31.9 Bipolar disorder, unspecified; G25.0 Essential tremor; I25.10 Atherosclerotic heart disease of native coronary artery without angina pectoris; M48.00 Spinal stenosis, site unspecified
CPT/HCPCS: 33340; 82962; 85347; 85610; 86850; 86900; 86901; 93005; 93355; 93656; 93657; C1732; C1733; C1759; C1766; C1769; C1892; C1894; Q9967